=== PATIENT | male | born 1985 | race Caucasian/White ===

== ENCOUNTER 2021-11-04 11:15 | Day surgery (SDCO) | payer OTHER ==
[~2021-11-04] VITALS: Ht 185.4 cm; Wt 83.9 kg
[2021-11-04 11:58] LABS: BASOPHIL 0.2 % (0-2); EOSINOPHIL 0.2 % (0-5); HCT 43.2 % (42.0-52.0); HGB 15.1 g/dl (13.2-18.0); LYMPHOCYTE 4.4 % (15-48); MCH 31.7 pg (25.0-31.0); MCV 90.6 fL (78.0-100.0); MONOCYTE 2.9 % (0-12); MPV 9.6 fL (6.0-9.5); PLT 165 K/uL (150-400); RBC 4.77 M/uL (4.70-6.00); RDW 12.3 % (11.5-14.0); WBC 24.8 K/uL (4.0-10.5)
[2021-11-04 12:22] LABS: ALBUMIN 4.4 g/dL (3.4-5.0); ALKALINE PHOSHATASE 81 U/L (46-116); ALT 319 U/L (16-63); AST 282 U/L (15-37); BILIRUBIN - TOTAL 0.7 mg/dL (0.2-1.0); BUN 15 mg/dL (7-18); BUN/CREAT RATIO (CALC) 13.9 RATIO; CHLORIDE 103 mmol/L (98-107); CO2 (BICARBONATE) 26 mmol/L (21-32); CREATININE 1.08 mg/dL (0.67-1.17); GLOBULIN (CALCULATION) 3.2 g/dL; GLUCOSE 155 mg/dL (74-106); POTASSIUM 4.1 mmol/L (3.5-5.1); TOTAL PROTEIN 7.6 g/dL (6.4-8.2)
[2021-11-04 13:31] LABS: BILIRUBIN NEGATIVE (NEGATIVE); BLOOD 2+ Ery/uL (NEGATIVE); CLARITY CLEAR (CLEAR); COLOR YELLOW (YELLOW); GLUCOSE (U) NORMAL (NORMAL); LEUKOCYTES NEGATIVE Leu/uL (NEGATIVE); NITRITE NEGATIVE (NEGATIVE); PROTEIN 2+ mg/dL (NEGATIVE); SPECIFIC GRAVITY 1.025 (1.001-1.030); UROBILINOGEN 0.2 mg/dL (0.2-1.0)
[2021-11-04 13:34] LABS: AMPHETAMINES NEGATIVE (NEGATIVE); BARBITURATES NEGATIVE (NEGATIVE); ECSTASY (MDMA) NEGATIVE (NEGATIVE); MARIJUANA (THC) NEGATIVE (NEGATIVE); METHADONE NEGATIVE (NEGATIVE); OPIATES NEGATIVE (NEGATIVE); OXYCODONE NEGATIVE (NEGATIVE)
[2021-11-04 13:37] LABS: AMORPHOUS URATES CRYSTALS TRACE; URINARY WBC RARE
[2021-11-04 15:01] LABS: LACTIC ACID 2.3 mmol/L (0.4-1.9)
[2021-11-04 15:09] LABS: BAND 8 % (0-10); EOSINOPHIL(M) 1 % (0-5); LYMPHOCYTE(M) 2 % (15-48); METAMYELOCYTE 1; MONOCYTE(M) 4 % (0-12); NEUTROPHILS(M) 84 % (41-80); TOTAL CELL COUNT 100
[2021-11-04 15:12] LABS: C-REACTIVE PROTEIN < 0.20 mg/dL (<=0.90)
[2021-11-04 15:13] LABS: PLATELET ESTIMATE NORMAL; PLATELET MORPHOLOGY NORMAL
[2021-11-04 16:55] LABS: CORONAVIRUS 2019 SARS-COV-2 NEGATIVE (NEGATIVE); INFLUENZA A NAA NEGATIVE (NEGATIVE)
[2021-11-04] MEDS ORDERED: KLONOPIN1 MG PO (17:47)
[2021-11-04] MEDS ORDERED: BUPRENORPHINE HC8 MG PO (17:48)
[2021-11-05 06:11] LABS: HIV AB/P24 AG SCREEN Non Reactive (Non Reactive)
[2021-11-05 06:32] LABS: BASOPHIL 0.2 % (0-2); EOSINOPHIL 0.4 % (0-5); HGB 11.8 g/dl (13.2-18.0); LYMPHOCYTE 21.1 % (15-48); MCH 31.7 pg (25.0-31.0); MCHC 34.7 g/dL (32.0-36.0); MCV 91.4 fL (78.0-100.0); MONOCYTE 8.3 % (0-12); MPV 10.1 fL (6.0-9.5); NEUTROPHIL 69.6 % (41-80); NRBC 0; PLT 115 K/uL (150-400); RBC 3.72 M/uL (4.70-6.00); RDW 12.6 % (11.5-14.0); WBC 11.1 K/uL (4.0-10.5)
[2021-11-05 07:33] LABS: ALBUMIN 3.3 g/dL (3.4-5.0); BILIRUBIN - TOTAL 0.7 mg/dL (0.2-1.0); BUN/CREAT RATIO (CALC) 14.5 RATIO; CREATININE 1.59 mg/dL (0.67-1.17); GLOBULIN (CALCULATION) 2.4 g/dL; POTASSIUM 4.5 mmol/L (3.5-5.1); TOTAL PROTEIN 5.7 g/dL (6.4-8.2)
[2021-11-05] MEDS ORDERED: BUPRENORPHINE HC8 MG SL (08:25)
[2021-11-05] MEDS ORDERED: [UNRECOGNIZED DRUG - OTHER] IM (08:33)
--- NOTE | 2021-11-05 10:57 | NUR ---
11/05 Mr. Ryan was admitted due to a drug over dose. He typically lives at home in [place] with his GF. They were visiting her family in [place], [place]. Mr. Ryan had ran out of his Buprenorphine, prescribed by [facility]. He took some Oxycodone reeived by a person he didn't know. Mr. Ryan beieves the Oxycodone was laced with Fentynol. - Mr. Ryan states that he had taken additional Buprenorphine when he was having several bad days. He reports that he will only take medications as prescribed nor will he take medications not prescribed in the future. 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 - Mr. Ryan also receives counseling at the clinic. He sees a psychoatrist for treatment of Bipolar disease. No additionals services are needed.
[2021-11-05] MEDS ORDERED: MS CONTIN100 MG PO (11:01)
--- NOTE | 2021-11-05 11:35 | NUR ---
PATIENT RETURNED TO THE HOSPITAL AFTER BEING DISCHARGED BECAUSE HE WAS UNABLE TO GET THE PRESCRIPTION DR BEARD SENT TO [facility] [place]. DR BEARD IS NOT AN APPROVED PRESCRIBER OF THE MEDICATION SENT IN FOR THE PATIENT. THE PATIENT HAS AN APPOINTMENT WITH THE [facility] IN [place] TOMORROW, BUT IS REQUESTING MEDICATION TO "GET HIM THROUGH TONIGHT." I WAS ABLE TO CALL THE [place] [facility] WITH THE PATIENT PRESENT, PATIENT WAS ABLE TO MOVE TOMORROW MORNINGS APPOINTMENT TO TODAY AT 12PM. PATIENT LEFT THE BUILDING TO GO STRAIGHT TO HIS APPOINTMENT. PATIENT DENIED ANY TRANSPORTATION BARRIERS, AND LEFT THE BUILDING AMBULATORY WITH STEADY GAIT.
[2021-11-08 06:36] LABS: HBSAG SCREEN Negative (Negative); HCV AB >11.0 (0.0-0.9); HCV LOG10 6.846 (.); HEP A AB, IGM Negative (Negative); HEP B CORE AB, IGM Negative (Negative); HEPATITIS C QUANTITATION 7020000 IU/mL (.)
[2021-11-11 09:10] LABS: FENTANYL Positive (.); FENTANYL CONFIRM 55939 pg/mL (Cutoff=500); FENTANYL/NORFENTANYL Positive (.); NORFENTANYL Positive (.); NORFENTANYL CONFIRM 435325 pg/mL (Cutoff=500)
== END 2021-11-05 10:00 | disposition home or self-care (01) ==
LOC: FER 11:15 → FMS 16:19
PROVIDERS: Emergency Medicine; ADMIT Allergy & Immunology Allergy
DX: T40.601A Poisoning by unspecified narcotics, accidental (unintentional), initial encounter (principal); R07.89 Other chest pain; D72.829 Elevated white blood cell count, unspecified; G89.29 Other chronic pain; F32.A Depression, unspecified; F41.9 Anxiety disorder, unspecified
CPT/HCPCS: 36415; 71045; 80053; 80074; 80305; 81001; 83036; 83605; 83880; 84145; 84484; 85025; 86140; 87040; 87389; 93005; 94760; G0378; G0480; J1885; J2543; J7030; J7120; U0002